=== PATIENT | female | born 1970 | race African-American/Black ===

== ENCOUNTER 2023-02-12 12:08 | Emergency (ER) | payer MEDICAID, OTHER ==
[~2023-02-12] VITALS: Ht 172.7 cm; Wt 98.0 kg
[~2023-02-12 12:08] MED LIST: ASPI-1406 PO; BACL-141; CYCLOBENZAPRINE; DICL75TA5 PO; HYDR-459; LANS30CA55 PO; MECL-159; METH500T PO; NEURONTIN PO; NITR0.4T; TRAMADOL PO; VIC
[2023-02-12 13:13] LABS: BASOPHILS % 0.9 % (0.0-2.0); HEMATOCRIT. 37.4 % (36.0-48.0); HEMOGLOBIN. 12.6 g/dL (12.0-16.0); MEAN CORPUSCULAR HEMOGLOBIN 30.1 pg (28.0-32.0); MEAN CORPUSCULAR VOLUME 89.6 fL (81.0-99.0); MEAN PLATELET VOLUME 9.3 fl (7.4-10.4); MONOCYTES % 7.2 % (2.0-8.0); NEUTROPHILS % 64.9 % (40.0-76.0); PLATELET 251 x1000/uL (130-400); RED BLOOD CELL COUNT 4.17 mill/uL (4.2-5.4); RED CELL DISTRIBUTION WIDTH 13.7 % (11.6-14.6)
[2023-02-12 13:18] LABS: CHLORIDE 111 mEq/L (98-107)
[2023-02-12] MEDS ORDERED: MECLIZINE 12.5MG TABLET PO NR (14:00)
[2023-02-12] MEDS ORDERED: MECLIZINE 25MG TABLET PO ONE (14:00)
[2023-02-12] MEDS ORDERED: SODIUM CHLORIDE 0.9% 1,000 ML IV ONE (14:00)
[2023-02-12 16:08] LABS: CLARITY URINE CLEAR (CLEAR); COLOR URINE YELLOW (YELLOW); KETONES URINE NEGATIVE (NEGATIVE); LEUKOCYTE ESTERASE URINE NEGATIVE (NEGATIVE); NITRITE URINE NEGATIVE (NEGATIVE); OCCULT BLOOD URINE NEGATIVE (NEGATIVE); PH URINE 5.5 (4.5-8.0); PROTEIN URINE NEGATIVE (NEGATIVE); SPECIFIC GRAVITY URINE 1.015 (1.005-1.030); UROBILINOGEN URINE 0.2 E.U./dL (0.2-1.0)
[2023-02-12] MEDS ORDERED: ACETAMINOPHEN 325MG TABLET PO ONE (16:30)
[2023-02-12] MEDS ORDERED: IBUPROFEN 400MG TABLET PO ONE (16:30)
[2023-02-12] MEDS ORDERED: TRAM50TA3 MT (17:56)
[2023-02-12 18:00] VITALS: BP 121/50
== END 2023-02-12 18:35 | disposition home or self-care (01) ==
LOC: ER 12:21
DX: R42 Dizziness and giddiness (principal); Z76.0 Encounter for issue of repeat prescription; Z79.899 Other long term (current) drug therapy
CPT/HCPCS: 36415; 70450; 71045; 74176; 80053; 81003; 83605; 83690; 83880; 84145; 84484; 85025; 87040; 87086; 93005; 96360; 99285; J7030; J8597